=== PATIENT | female | born 1950 | race Caucasian/White ===

== ENCOUNTER 2017-01-21 09:46 | Inpatient (IN) ==
--- NOTE | 2017-01-21 10:06 | Emergency Department Note ---
Disposition Clinical Impression: Positive blood culture, Bacteremia Disposition: Admitted As Inpatient Condition: Fair Forms: ED Satisfaction Letter Time of Disposition: 11:23 General Adult HPI - General Chief complaint: ED Recheck/Abnormal Lab/Rx Stated complaint: Abnormal Labs/positive blood cultures Time Seen by Provider: 01/21/17 10:00 Source: patient Limitations: no limitations Nursing Notes Reviewed: Yes Vital Signs Reviewed: Yes - History of Present Illness HPI Narrative: Patient presents to the ED with a positive blood culture. Patient was seen 2 days ago for generalized malaise and fever. Sore throat. She had a blood culture drawn that came back positive for strep pneumo on the preliminary. She states she is not feeling much better. She is coughing but she cannot cough anything up. Sore throat and ear pain. Pain Scale: 4 - Related Data Home Medications Medication Instructions Recorded Confirmed Atorvastatin Calcium [Lipitor] 80 mg PO HS 01/21/17 01/21/17 Carvedilol 3.125 mg PO BID 01/21/17 01/21/17 Cholecalciferol (D-3) [Vitamin D] 1,000 unit PO DAILY 01/21/17 01/21/17 Gabapentin [Neurontin] 300 mg PO TID 01/21/17 01/21/17 Isosorbide MONOnitrate (24 HR) 30 mg PO DAILY 01/21/17 01/21/17 [Imdur] Levothyroxine [Synthroid] 88 mcg PO DAILY 01/21/17 01/21/17 Losartan [Cozaar] 25 mg PO DAILY 01/21/17 01/21/17 Ranitidine HCl [Acid Telecommunication Systems Designer] 150 mg PO BID 01/21/17 01/21/17 Sertraline [Zoloft] 100 mg PO BID 01/21/17 01/21/17 metFORMIN [Glucophage] 500 mg PO BIDWM 01/21/17 01/21/17 Allergies Allergy/AdvReac Type Severity Reaction Status Date / Time No Known Allergies Allergy Verified 01/21/17 09:48 All systems ED: reviewed and negative except as stated. Constitutional: Reports: fever, chills Cardiovascular: Denies: chest pain Respiratory: Reports: cough. Denies: dyspnea, wheezes, hemoptysis Gastrointestinal: Denies: abdominal pain Past Medical History - Past Medical History Attestation: Yes The following information was validated with the patient. Source: patient Medical history: Reports: arthritis, diabetes, hypertension Psychiatric history: Reports: no psych history - Social History Smoking Status: Current every day smoker Smokeless Tobacco Status: No Alcohol use: Reports: none Drug use: Reports: none Physical Exam Sitting on the side of the bed in no acute distress. Lungs clear. - General Limitations: no limitations General appearance: alert - Head Head exam: atraumatic, normocephalic - Eye Eye exam: Present: normal appearance - ENT ENT exam: other (Posterior pharynx erythema) - Chest Chest inspection: Present: normal inspection - Respiratory Respiratory exam: Present: normal lung sounds bilaterally. Absent: respiratory distress, wheezes - Cardiovascular Cardiovascular exam: Present: regular rate, normal rhythm, normal heart sounds - Abdominal Exam Abdominal exam: Present: soft, Non-Tender - Neurological Exam Neurological exam: Present: alert, oriented X3 - Psychiatric Psychiatric exam: Present: normal affect - Skin Skin exam: Present: warm, dry Course Course Narrative: Patient is in no distress. Vital signs stable. Well perform septic workup and admit. - Consultations Consultation #1: Dr Ramirez accepts Time: 11:23 Vital Signs Temperature 97.7 F 01/21/17 09:48 Pulse Rate 76 01/21/17 09:48 Respiratory Rate 20 01/21/17 09:48 Blood Pressure 126/69 01/21/17 09:48 O2 Sat by Pulse Oximetry 99 01/21/17 09:48 Temperature 97.7 F 01/21/17 09:48 Pulse Rate 77 01/21/17 11:13 Respiratory Rate 16 01/21/17 11:13 Blood Pressure 114/58 01/21/17 11:13 O2 Sat by Pulse Oximetry 98 01/21/17 11:13 Oxygen Delivery Oxygen Delivery Room Air Medical Decision Making - Lab Data Result diagrams: 01/21/17 10:39 01/21/17 10:39 Lab Results 01/21/17 01/21/17 01/21/17 Range/Units 10:39 10:39 10:39 WBC 17.1 H (4.3-11.1) K/mcL RBC 3.69 L (3.82-4.97) M/mcL Hgb 11.8 (11.5-15.4) g/dL Hct 35.3 (35.3-44.9) % MCV 95.7 (83.0-100.0) fL MCH 32.0 (28.0-33.3) pg MCHC 33.4 (31.6-35.5) g/dL RDW 12.6 (11.5-14.5) % Plt Count 110 L (140-400) K/mcL MPV 11.1 (9.4-12.4) fL Immature Gran % 0.9 (0-4) % Seg Neutrophils % 84.3 % Lymphocytes % 9.5 % Monocytes % 4.9 % Eosinophils % 0.2 % Basophils % 0.2 % Neutrophils # 14.4 H (1.6-8.9) K/mcL Lymphocytes # 1.6 (0.6-4.6) K/mcL Monocytes # 0.8 (0.0-1.3) K/mcL Eosinophils # 0.0 (0.0-0.6) K/mcL Basophils # 0.0 (0.0-0.2) K/mcL PT 12.3 H (9.4-12.1) Seconds INR 1.1 APTT 33.1 (26.0-36.0) Seconds Sodium 137 (136-145) mEq/L Potassium 3.3 L (3.5-4.5) mEq/L Chloride 100 (98-109) mEq/L Carbon Dioxide 27 (19-29) mEq/L BUN 28 H (7-20) mg/dL Creatinine 1.02 (0.57-1.11) mg/dL Est GFR ( Amer) > 60 (> 60) Est GFR (Non-Af Amer) 54 L (> 60) BUN/Creatinine Ratio 27 H (6-26) Glucose 100 H (70-99) mg/dL Calculated Osmolality 290 (280-300) Lactic Acid (0.5-2.2) mmol/L Calcium 9.9 (8.6-10.8) mg/dL Phosphorus 2.3 (2.3-4.7) mg/dL Magnesium 2.1 (1.6-2.6) mg/dL Total Bilirubin 1.2 (0.2-1.2) mg/dL Direct Bilirubin 0.6 H (0.0-0.5) mg/dL Indirect Bilirubin 0.6 (0.0-1.2) mg/dL AST 23 (5-34) Units/L ALT 23 (0-55) Units/L Alkaline Phosphatase 115 (38-126) Units/L Troponin I (0-0.03) ng/mL Serum Total Protein 7.6 (6.0-8.3) g/dL Albumin 3.6 (3.5-5.0) g/dL Globulin 4.0 H (2.4-3.5) g/dL Albumin/Globulin Ratio 0.9 L (1.1-2.2) 01/21/17 01/21/17 Range/Units 10:39 10:39 WBC (4.3-11.1) K/mcL RBC (3.82-4.97) M/mcL Hgb (11.5-15.4) g/dL Hct (35.3-44.9) % MCV (83.0-100.0) fL MCH (28.0-33.3) pg MCHC (31.6-35.5) g/dL RDW (11.5-14.5) % Plt Count (140-400) K/mcL MPV (9.4-12.4) fL Immature Gran % (0-4) % Seg Neutrophils % % Lymphocytes % % Monocytes % % Eosinophils % % Basophils % % Neutrophils # (1.6-8.9) K/mcL Lymphocytes # (0.6-4.6) K/mcL Monocytes # (0.0-1.3) K/mcL Eosinophils # (0.0-0.6) K/mcL Basophils # (0.0-0.2) K/mcL PT (9.4-12.1) Seconds INR APTT (26.0-36.0) Seconds Sodium (136-145) mEq/L Potassium (3.5-4.5) mEq/L Chloride (98-109) mEq/L Carbon Dioxide (19-29) mEq/L BUN (7-20) mg/dL Creatinine (0.57-1.11) mg/dL Est GFR ( Amer) (> 60) Est GFR (Non-Af Amer) (> 60) BUN/Creatinine Ratio (6-26) Glucose (70-99) mg/dL Calculated Osmolality (280-300) Lactic Acid 1.1 (0.5-2.2) mmol/L Calcium (8.6-10.8) mg/dL Phosphorus (2.3-4.7) mg/dL Magnesium (1.6-2.6) mg/dL Total Bilirubin (0.2-1.2) mg/dL Direct Bilirubin (0.0-0.5) mg/dL Indirect Bilirubin (0.0-1.2) mg/dL AST (5-34) Units/L ALT (0-55) Units/L Alkaline Phosphatase (38-126) Units/L Troponin I 0.01 (0-0.03) ng/mL Serum Total Protein (6.0-8.3) g/dL Albumin (3.5-5.0) g/dL Globulin (2.4-3.5) g/dL Albumin/Globulin Ratio (1.1-2.2) - EKG Data EKG #1 EKG attestation: Yes I reviewed and interpreted this EKG. EKG results narrative: EKG normal sinus at 71. Unchanged from 1024. EKG shows normal: sinus rhythm, axis, intervals, QRS complexes, ST-T waves Critical Care Time Critical Care Time: Yes Attestation: 30 minutes of critical care exclusive of separately billable procedures
[2017-01-21] MEDS ORDERED: Levofloxacin 750 MG/150 ML 750 MG/150 ML BAG IVPB ONE (10:14)
[2017-01-21] MEDS ORDERED: 0.9 % Sodium Chloride 1,000 ML IVC ONE (10:14)
[2017-01-21] MEDS ORDERED: Albuterol 2.5 MG/3 ML NEBULIZER IH ONE (10:17)
[2017-01-21 10:52] LABS: Basophils % 0.2 %; Eosinophils % 0.2 %; Hematocrit 35.3 % (35.3-44.9); Hemoglobin 11.8 g/dL (11.5-15.4); Immature Granulocytes % 0.9 % (0-4); Lymphocytes # 1.6 K/mcL (0.6-4.6); Lymphocytes % 9.5 %; Mean Corpuscular HGB Conc 33.4 g/dL (31.6-35.5); Mean Corpuscular Volume 95.7 fL (83.0-100.0); Mean Platelet Volume 11.1 fL (9.4-12.4); Monocytes # 0.8 K/mcL (0.0-1.3); Monocytes % 4.9 %; Neutrophils # 14.4 K/mcL (1.6-8.9); Platelet Count 110 K/mcL (140-400); Red Blood Count 3.69 M/mcL (3.82-4.97); Red Cell Distribution Width 12.6 % (11.5-14.5); Segmented Neutrophils % 84.3 %
[2017-01-21 10:57] LABS: INR 1.1; Prothrombin Time 12.3 Seconds (9.4-12.1)
[2017-01-21 10:59] LABS: Activated Partial Thrombo Time 33.1 Seconds (26.0-36.0)
[2017-01-21 11:10] LABS: Alanine Aminotransferase 23 Units/L (0-55); Albumin 3.6 g/dL (3.5-5.0); Albumin/Globulin Ratio 0.9 (1.1-2.2); Alkaline Phosphatase 115 Units/L (38-126); Aspartate Amino Transferase 23 Units/L (5-34); BUN/Creatinine Ratio 27 (6-26); Bilirubin,Direct 0.6 mg/dL (0.0-0.5); Bilirubin,Indirect 0.6 mg/dL (0.0-1.2); Bilirubin,Total 1.2 mg/dL (0.2-1.2); Blood Urea Nitrogen 28 mg/dL (7-20); Calcium 9.9 mg/dL (8.6-10.8); Carbon Dioxide 27 mEq/L (19-29); Chloride 100 mEq/L (98-109); Glucose 100 mg/dL (70-99); Magnesium 2.1 mg/dL (1.6-2.6); Osmolality,Calculated 290 (280-300); Phosphorous 2.3 mg/dL (2.3-4.7); Potassium 3.3 mEq/L (3.5-4.5); Sodium 137 mEq/L (136-145); Total Protein 7.6 g/dL (6.0-8.3); eGFR For African Americans > 60 (> 60); eGFR For Non-African Americans 54 (> 60)
[2017-01-21] MEDS ORDERED: Ondansetron 4 MG/2 ML VIAL IVP PRN (11:30)
[2017-01-21] MEDS ORDERED: Naloxone 0.4 MG/ML INJ IVP PRN (11:30)
[2017-01-21] MEDS ORDERED: *HR* Dextrose 50 % in Water (Syg) 50 ML SYRINGE IVP PRN (11:32)
[2017-01-21] MEDS ORDERED: D5% in Water 1,000 ML IVC PRN (11:32)
[2017-01-21] MEDS ORDERED: Dextrose Gel 15 GM PO PRN ×2 (11:32)
--- NOTE | 2017-01-21 11:45 | Event Note ---
Date of Encounter: 01/21/17 Time of Encounter: 11:41 The patient has been complaining of severe right ear pain and mentions that cannot hear very well without year. Right tympanic membrane shows a fluid level. Has been having severe pain with swallowing on the right side Treatment having nonquantifiable fevers at home and her white blood cell count is 17.1 1. Sepsis secondary to bacteremia with Streptococcus pneumoniae likely from possible right otitis media, consider possible retropharyngeal abscess or possible right mastoiditis Continue Rocephin, await final report of culture with sensitivity IV fluids, consider ENT consult depending on the report of the CT scan of the head and neck will be performed at the ER prior to the patient's admission. Dr. khan left already but Dr. Billingsley with order both tests 2. Leukocytosis likely secondary to sepsis 3. Diabetes, continue insulin sliding scale 4. Depression, continue Zoloft 5. Hypothyroidism, continue levothyroxine Omeprazole for GI prophylaxis and subcutaneous heparin for DVT prophylaxis. The patient will be admitted as inpatient, expected to stay more than 2 midnights. Full code. Time spent on this admission 40 minutes. H&P will be completed by ASHLEY Mo
--- NOTE | 2017-01-21 12:10 | Internal Med History&Physical ---
Date of Encounter: 01/21/17 Time of Encounter: 12:08 Assessment and Plan (1) Bacteremia Current visit: Yes Status: Acute 1 Patient has been experiencing subjective fever general malaise, cough congestion ear pain and throat pain. Blood culture positive for strep pneumonia. Blood culture obtained started on Rocephin- suspect possible right otitis media, possible retropharyngeal abcess or possible r mastoiditis will obtain CT of head neck to rule out 2 IVF (2) Diabetes mellitus Current visit: No Status: Chronic patient denies any diabetes however on metformin BID. We will obtain A1c Acucheck AC HS with SSI Qualifiers: Diabetes mellitus type: type 2 Diabetes mellitus complication status: with neurologic complications Diabetes mellitus complication detail: with unspecified neuropathy Diabetes mellitus intermediate insulin use: without terminal operator use Qualified Code(s): E11.40 - Type 2 diabetes mellitus with diabetic neuropathy, unspecified (3) HTN (hypertension) Current visit: No Status: Chronic 1 presently hypotensive dt infection- she has not taken medication for 2 days we will cont to hold and resume once back to baseline 2 IVF Qualifiers: Hypertension type: essential hypertension Qualified Code(s): I10 - Essential (primary) hypertension (4) Hypothyroid Current visit: No Status: Chronic continue synthroid Qualifiers: Hypothyroidism type: unspecified Qualified Code(s): E03.9 - Hypothyroidism , unspecified (5) DVT prophylaxis Current visit: Yes Status: Acute heparin subcutaneous T Internal Medicine - H&P: HPI Chief complaint: Cough, ear and throat pain Admitted From: Emergency Dept Plans for Post Hospital Care: Home History of present illness: Ms. Saleh is a 66 year old female past medical history of neuropathy and COPD hypothyroid . According to the patient she does not have any past heart history however she is on a beta leyda and statin as well as she denies diabetes but is on metformin. According to the patient for the past 3 days she has been experiencing nonproductive cough congestion subjective fevers and right ear pain which she has difficulty hearing as well as right throat pain and having difficulty swallowing. She was seen in the ER a few days ago and diagnosed with viral infection blood cultures were obtained they did come back positive with Streptococcus pneumoniae. Patient was notified today and presented to the ER with the above complaints. Lab work did reveal some leukocytosis blood cultures obtained and patient started on Rocephin and Levaquin. She has been admitted for further workup and evaluation. Presently patient does not appear to be respiratory distress. Lung sounds are clear she does have some tenderness behind her right ear as well as right tympanic membrane show some fluid level. We will obtain a CT of head and neck to rule out possible retropharyngeal abscess or possible r mastoiditis I reviewed this case with Dr Ramirez who agrees with plan. Past Med Surg Social Fam HX - Past Medical History Medical history: arthritis, diabetes, hypertension Psychiatric history: no psych history - Social History Smoking Status: Current every day smoker Smokeless Tobacco Status: No Alcohol use: none Drug use: none Internal Medicine - H&P: Meds Atorvastatin Calcium [Lipitor] 80 mg PO HS 01/21/17 [History] Carvedilol 3.125 mg PO BID 01/21/17 [History] Cholecalciferol (D-3) [Vitamin D] 1,000 unit PO DAILY 01/21/17 [History] Gabapentin [Neurontin] 300 mg PO TID 01/21/17 [History] Isosorbide MONOnitrate (24 HR) [Imdur] 30 mg PO DAILY 01/21/17 [History] Levothyroxine [Synthroid] 88 mcg PO DAILY 01/21/17 [History] Losartan [Cozaar] 25 mg PO DAILY 01/21/17 [History] Ranitidine HCl [Acid Management Trainee] 150 mg PO BID 01/21/17 [History] Sertraline [Zoloft] 100 mg PO BID 01/21/17 [History] metFORMIN [Glucophage] 500 mg PO BIDWM 01/21/17 [History] 3 Allergy/AdvReac Type Severity Reaction Status Date / Time No Known Allergies Allergy Verified 01/21/17 09:48 All Systems PM: A 10-system review of systems was performed and is negative for pertinent findings except as documented above in the HPI. - Constitutional Constitutional: fatigue, fever(s), no chills, no night sweats - EENT Eyes: no change in vision, no discharge, no pain, no photophobia Ears: decreased hearing, ear pain Nose, mouth and throat: sore throat, no dysphagia, no nasal discharge, no neck pain - Cardiovascular Cardiovascular ROS IM: no chest pain, no diaphoresis, no dyspnea, no lightheadedness, no palpitations, no syncope - Respiratory Respiratory: cough, chest congestion - Gastrointestinal Gastrointestinal: no abdominal pain, no diarrhea, no hematemesis, no hematochezia, no melena, no nausea, no vomiting - Genitourinary Genitourinary: no change in urinary stream, no dysuria, no flank pain, no hematuria - Musculoskeletal Musculoskeletal ROS IM: no numbness, no tingling - Integumentary Integumentary IM: no rash, no unusual bruising - Neurological Neurological ROS: no confusion, no convulsions, no focal weakness, no numbness, no tingling, no tremor(s) - Hematologic/Lymphatic Hematologic/Lymphatic: no easy bruising - Constitutional Vitals: Temp Pulse Resp BP Pulse Ox 97.7 F 77 16 114/58 98 01/21/17 09:48 01/21/17 11:13 01/21/17 11:13 01/21/17 11:13 01/21/17 11:13 General appearance: Present: A&O X 3, answers questions appropriately - Head Head exam: Present: atraumatic, normocephalic - Eye Eye exam: Present: PERRL, conjuntiva pink, sclera anicteric - ENT Additional comments: r tympanic-with fluid - Neck Neck exam general surgery: Present: supple, trachea midline. Absent: lymphadenopathy - Respiratory Respiratory exam: Present: CTAB. Absent: accessory muscle use, rales, rhonchi, wheezes - Cardiovascular Cardiovascular exam: Present: RRR, +S1, +S2. Absent: diastolic murmur, gallop, rubs, systolic murmur - GI/Abdominal GI/Abdominal exam: Present: normal bowel sounds, soft, no peritoneal signs. Absent: distended, tenderness - Extremities Exam Extremities exam: Present: warm, radial pulses palpable and symmetrical. Absent : calf tenderness, cyanotic, pedal edema - Neurological Exam Neurological exam: Present: CN II-XII intact, oriented X3, no focal deficits. Absent: pronater drift, facial droop, speech deficit - Skin Skin exam: Present: dry, intact Internal Med - H&P Results - Labs CBC & Chem 7: 01/21/17 10:39 01/21/17 10:39 Labs: Short CBC 01/21/17 Range/Units 10:39 WBC 17.1 H (4.3-11.1) K/mcL Hgb 11.8 (11.5-15.4) g/dL Hct 35.3 (35.3-44.9) % Plt Count 110 L (140-400) K/mcL Neutrophils # 14.4 H (1.6-8.9) K/mcL BMP 01/21/17 10:39 Sodium 137 Potassium 3.3 L Chloride 100 Carbon Dioxide 27 BUN 28 H Creatinine 1.02 Glucose 100 H Calcium 9.9 Cardiac Enzymes 01/21/17 Range/Units 10:39 Troponin I 0.01 (0-0.03) ng/mL Liver Function 01/21/17 Range/Units 10:39 Total Bilirubin 1.2 (0.2-1.2) mg/dL Direct Bilirubin 0.6 H (0.0-0.5) mg/dL AST 23 (5-34) Units/L ALT 23 (0-55) Units/L Alkaline Phosphatase 115 (38-126) Units/L Albumin 3.6 (3.5-5.0) g/dL - Impressions ITS Impressions Chest X-Ray 01/21/17 10:14 IMPRESSION: Normal. D/ / Carlos Antunez MD / Carlos Antunez MD Interpreting Provider: Carlos Antunez MD - Diagnostic Studies Other Images Additional comments: Chest X-Ray 01/21/17 10:14
[2017-01-21 12:56] LABS: Bilirubin,Urine Negative (Negative); Blood,Urine Negative (Negative); Clarity,Urine Cloudy (Clear); Color,Urine Dark Yellow (Yellow); Glucose,Urine (UA) Normal (Normal); Ketones,Urine Negative (Negative); Leukocyte Esterase,Urine Small (Negative); Nitrite,Urine Negative (Negative); PH,Urine 5.5 pH Units (5.0-8.0); Protein,Urine 30 mg/dL (Neg-Trace); Specific Gravity,Urine 1.025 (1.010-1.025); Urobilinogen,Urine Normal (Normal)
[2017-01-21 12:59] LABS: Squamous Epithelial Cell,Urine Many per lpf (None-Few); WBC,Urine 15-30 per hpf (0-3)
[2017-01-21 13:17] LABS: Granular Casts,Urine Few per lpf (None Seen); Hyaline Casts,Urine Few per lpf (None-Few); Mucus,Urine Few (Few)
[2017-01-21 13:19] LABS: Renal Epithelial Cells,Urine Few per hpf (None-Few); Transitional Epi Cells,Urine Few per hpf (None-Few)
[2017-01-21 13:20] LABS: Bacteria,Urine Moderate per hpf (None-Few); RBC,Urine 0-3 per hpf (0-3)
[2017-01-21] MEDS: 0.9 % Sodium Chloride 1,000 ML IVC SCH ×2 (15:11→17:06)
[2017-01-21] MEDS: Nicotine 14 MG PATCH.TD24 TD SCH (15:34)
[2017-01-21] MEDS: Gabapentin 300 MG CAPSULE PO SCH ×2 (15:34→22:02)
[2017-01-21] MEDS: Insulin LISPRO 300 UNITS/3 ML VIAL SQ SCH ×2 (15:49→22:04)
[2017-01-21] MEDS: *HR* Heparin 5,000 UNIT/ML VIAL SQ SCH (17:05)
[2017-01-21] MEDS: Acetaminophen 325 MG TABLET PO PRN (22:01)
[2017-01-22 04:20] LABS: BUN/Creatinine Ratio 27 (6-26); Blood Urea Nitrogen 23 mg/dL (7-20); Carbon Dioxide 25 mEq/L (19-29); Chloride 108 mEq/L (98-109); Potassium 3.5 mEq/L (3.5-4.5); Sodium 139 mEq/L (136-145); eGFR For African Americans > 60 (> 60)
[2017-01-22 04:21] LABS: Calcium 8.7 mg/dL (8.6-10.8); Glucose 91 mg/dL (70-99); Osmolality,Calculated 291 (280-300); eGFR For Non-African Americans > 60 (> 60)
[2017-01-22 04:23] LABS: Hemoglobin A1C 4.7 %
[2017-01-22] MEDS ORDERED: *HR* OxyCODONE Immed Rel 5 MG TABLET PO ONE (05:07)
[2017-01-22 05:08] LABS: Basophils % 0.2 %; Hemoglobin 9.2 g/dL (11.5-15.4); Immature Granulocytes % 0.7 % (0-4); Mean Corpuscular Volume 96.1 fL (83.0-100.0); Monocytes % 5.1 %
[2017-01-22 05:09] LABS: Eosinophils # 0.1 K/mcL (0.0-0.6); Eosinophils % 1.5 %; Hematocrit 27.4 % (35.3-44.9); Lymphocytes # 1.7 K/mcL (0.6-4.6); Lymphocytes % 21.4 %; Mean Corpuscular HGB Conc 33.6 g/dL (31.6-35.5); Mean Corpuscular Hemoglobin 32.3 pg (28.0-33.3); Mean Platelet Volume 11.8 fL (9.4-12.4); Monocytes # 0.4 K/mcL (0.0-1.3); Neutrophils # 5.7 K/mcL (1.6-8.9); Red Blood Count 2.85 M/mcL (3.82-4.97); Red Cell Distribution Width 12.7 % (11.5-14.5); Segmented Neutrophils % 71.1 %
[2017-01-22] MEDS: *HR* Heparin 5,000 UNIT/ML VIAL SQ SCH ×2 (05:14→17:49)
[2017-01-22 06:08] LABS: Platelet Count 86 K/mcL (140-400)
[2017-01-22] MEDS: Isosorbide MONOnitrate (24 HR) 30 MG TAB.ER.24H PO SCH (09:17)
[2017-01-22] MEDS: Pantoprazole 40 MG VIAL IVP SCH (09:17)
[2017-01-22] MEDS: Nicotine 14 MG PATCH.TD24 TD SCH (09:17)
[2017-01-22] MEDS: Gabapentin 300 MG CAPSULE PO SCH ×3 (09:17→21:40)
[2017-01-22] MEDS: Insulin LISPRO 300 UNITS/3 ML VIAL SQ SCH ×4 (09:17→21:41)
--- NOTE | 2017-01-22 09:48 | Internal Med Progress Note ---
<Juan C Morales Quynh - Last Filed: 01/22/17 14:03> Date of Encounter: 01/22/17 Time of Encounter: 09:46 - Assessment and plan (1) Bacteremia due to Streptococcus pneumoniae Current Visit: Yes Status: Acute Assessment and plan: Blood culture from 01/19/17 - Strep pneumo - sensitive to ceftriaxone Likely secondary to right otitis media - ear pain and sore throat are both improving CT shows no soft tissue mass, no retropharyngeal abscess, and no mastroiditis CXR showed no acute abnormality or consolidation Plan: Increase Rocephin to 2 gram - AOM vs sinusitis vs pharyngeal source Repeat Blood cultures (2) Leukocytosis Current Visit: Yes Status: Acute Assessment and plan: WBC 17.1 on admission - now 8.0 Continue antibiotics Qualifiers: Leukocytosis type: unspecified Qualified Code(s): D72.829 - Elevated white blood cell count, unspecified (3) Diabetes mellitus Current Visit: No Status: Chronic Assessment and plan: Continue SSI Qualifiers: Diabetes mellitus type: type 2 Diabetes mellitus complication status: with neurologic complications Diabetes mellitus complication detail: with unspecified neuropathy Diabetes mellitus parts counterman insulin use: without parts counterman use Qualified Code(s): E11.40 - Type 2 diabetes mellitus with diabetic neuropathy, unspecified (4) HTN (hypertension) Current Visit: No Status: Chronic Assessment and plan: Normotensive now - continue home meds Qualifiers: Hypertension type: essential hypertension Qualified Code(s): I10 - Essential (primary) hypertension - Subjective Interval history: Pt doing well, resting in bed. Reports some back pain, mild dyspnea, and dry cough. The dyspnea and cough are no different or worse than usual. Her sore throat and her ear pain are improving, no dysphagia. Denies fevers, chills, chest pain, N/V/D/C, dysuria, or leg pain/edema. - Constitutional Vitals: Temp Pulse Resp BP Pulse Ox 98.8 F 68 18 113/57 94 01/22/17 08:17 01/22/17 08:17 01/22/17 08:17 01/22/17 08:17 01/22/17 08:17 General appearance: Present: A&O X 3, answers questions appropriately - Head Head exam: Present: atraumatic, normocephalic - Eye Eye exam: Present: conjuntiva pink, sclera anicteric - ENT ENT exam: Present: mucous membranes moist - Neck Neck exam general surgery: Present: supple, trachea midline. Absent: lymphadenopathy - Respiratory Respiratory exam: Present: wheezes (cleared after coughing). Absent: accessory muscle use, rales, rhonchi - Cardiovascular Cardiovascular exam: Present: RRR, +S1, +S2. Absent: diastolic murmur, systolic murmur - GI/Abdominal GI/Abdominal exam: Present: normal bowel sounds, soft, no peritoneal signs. Absent: distended, tenderness - Extremities Exam Extremities exam: Present: warm, radial pulses palpable and symmetrical. Absent : calf tenderness, cyanotic, pedal edema - Neurological Exam Neurological exam: Present: CN II-XII intact, oriented X3, no focal deficits. Absent: facial droop, speech deficit - Skin Skin exam: Present: dry, intact Internal Medicine: Result - Labs CBC & Chem 7: 01/22/17 03:47 01/22/17 03:47 Labs: Short CBC 01/22/17 Range/Units 03:47 WBC 8.0 D (4.3-11.1) K/mcL Hgb 9.2 L D (11.5-15.4) g/dL Hct 27.4 L (35.3-44.9) % Plt Count 86 L (140-400) K/mcL Neutrophils # 5.7 (1.6-8.9) K/mcL BMP 01/22/17 03:47 Sodium 139 Potassium 3.5 Chloride 108 Carbon Dioxide 25 BUN 23 H Creatinine 0.86 Glucose 91 Calcium 8.7 Urine 01/21/17 Range/Units 12:45 Urine Color Dark Yellow (Yellow) Urine Clarity Cloudy A (Clear) Urine pH 5.5 (5.0-8.0) pH Units Ur Specific [place] 1.025 (1.010-1.025) Urine Protein 30 H (Neg-Trace) mg/dL Urine Glucose (UA) Normal (Normal) mg/dL - ABG Interpretation ABG results: PT/INR, D-dimer PT 12.3 Seconds (9.4-12.1) H 01/21/17 10:39 Consult Discharge Plan - Plan Referrals: Benson Herrera DO [Primary Care Provider] - <Elan Hodge - Last Filed: 01/22/17 17:40> Date of Encounter: 01/22/17 - Constitutional Vitals: Temp Pulse Resp BP Pulse Ox 99.3 F 84 18 125/63 97 01/22/17 15:52 01/22/17 15:52 01/22/17 15:52 01/22/17 15:52 01/22/17 15:52 Internal Medicine: Result - Labs CBC & Chem 7: 01/22/17 03:47 01/22/17 03:47 Labs: Short CBC 01/22/17 Range/Units 03:47 WBC 8.0 D (4.3-11.1) K/mcL Hgb 9.2 L D (11.5-15.4) g/dL Hct 27.4 L (35.3-44.9) % Plt Count 86 L (140-400) K/mcL Neutrophils # 5.7 (1.6-8.9) K/mcL BMP 01/22/17 03:47 Sodium 139 Potassium 3.5 Chloride 108 Carbon Dioxide 25 BUN 23 H Creatinine 0.86 Glucose 91 Calcium 8.7 - ABG Interpretation ABG results: PT/INR, D-dimer PT 12.3 Seconds (9.4-12.1) H 01/21/17 10:39 - Attending Attestation I examined this patient and my medical decision-making was reviewed with the Resident Physician. I agree with the documented findings, disposition and treatment plan as described except to the extent set forth below. Explained at length to patient and family members regarding the diagnosis/ prognosis and treatment plan. They all verbalized understanding.
[2017-01-22] MEDS ORDERED: 0.9 % Sodium Chloride 250 ML ONE (13:24)
[2017-01-22] MEDS: cefTRIAXone 2,000 MG in Water for inj. (sterile) 10 ML IVP SCH (13:26)
[2017-01-22] MEDS: Acetaminophen 325 MG TABLET PO PRN ×2 (14:10→21:40)
--- NOTE | 2017-01-22 18:17 | Electrocardiograph Report ---
[facility] Test Date: 2017-01-21 Pat Name: Arcelia Saleh Department: 103 Room: 2NE27 Gender: F Qualitative Field Coordinator: : 1950 Requested By: Mamie See Order Number: [id number] Reading MD: Marcos Cardona DO Measurements Intervals [place] Rate: 71 P: -7 VT: 151 QRS: 56 QRSD: 93 T: 50 QT: 404 QTc: 426 Interpretive Statements SINUS RHYTHM Electronically Signed On 01-22-2017 18:15:35 EDT by Marcos Cardona DO
[2017-01-22] MEDS ORDERED: *HR* LORazepam 0.5 MG TABLET PO ONE (20:08)
[2017-01-22] MEDS ORDERED: Ipratropium/Albuterol Neb 3 ML IH PRN (21:55)
[2017-01-23] MEDS: Ipratropium/Albuterol Neb 3 ML IH SCH ×7 (00:07→23:20)
[2017-01-23] MEDS: *HR* Heparin 5,000 UNIT/ML VIAL SQ SCH ×2 (06:14→16:38)
[2017-01-23 07:46] LABS: BUN/Creatinine Ratio 20 (6-26); Blood Urea Nitrogen 15 mg/dL (7-20); Calcium 8.7 mg/dL (8.6-10.8); Carbon Dioxide 26 mEq/L (19-29); Chloride 105 mEq/L (98-109); Glucose 127 mg/dL (70-99); Osmolality,Calculated 284 (280-300); Potassium 3.8 mEq/L (3.5-4.5); Sodium 136 mEq/L (136-145); eGFR For African Americans > 60 (> 60); eGFR For Non-African Americans > 60 (> 60)
[2017-01-23 07:48] LABS: Hematocrit 25.6 % (35.3-44.9); Hemoglobin 8.8 g/dL (11.5-15.4); Immature Platelets 8.8 % (1.1-6.1); Mean Corpuscular HGB Conc 34.4 g/dL (31.6-35.5); Mean Corpuscular Hemoglobin 32.8 pg (28.0-33.3); Mean Corpuscular Volume 95.5 fL (83.0-100.0); Red Blood Count 2.68 M/mcL (3.82-4.97); Red Cell Distribution Width 12.4 % (11.5-14.5)
[2017-01-23] MEDS: Pantoprazole 40 MG VIAL IVP SCH (09:19)
[2017-01-23] MEDS: Gabapentin 300 MG CAPSULE PO SCH ×3 (09:19→21:08)
[2017-01-23] MEDS: Nicotine 14 MG PATCH.TD24 TD SCH (09:20)
[2017-01-23] MEDS: Insulin LISPRO 300 UNITS/3 ML VIAL SQ SCH ×4 (09:20→21:10)
[2017-01-23] MEDS: Isosorbide MONOnitrate (24 HR) 30 MG TAB.ER.24H PO SCH (09:20)
[2017-01-23] MEDS: cefTRIAXone 2,000 MG in Water for inj. (sterile) 10 ML IVP SCH (12:25)
--- NOTE | 2017-01-23 18:03 | Internal Med Progress Note ---
Date of Encounter: 01/23/17 Time of Encounter: 18:02 - Assessment and plan (1) Bacteremia due to Streptococcus pneumoniae Current Visit: Yes Status: Acute Assessment and plan: Blood culture from 01/19/17 - Strep pneumo - sensitive to ceftriaxone Likely secondary to right otitis media - ear pain and sore throat are both improving CT shows no soft tissue mass, no retropharyngeal abscess, and no mastroiditis CXR showed no acute abnormality or consolidation Plan: Increase Rocephin to 2 gram - AOM vs sinusitis vs pharyngeal source Repeat Blood cultures 01/23/2017. Streptococcus pneumoniae bacteremia. Day 3 of antibiotics. Presently on ceftriaxone 2 g every 24 hours. Source unclear. Repeat blood culture from this hospital is negative so far. (2) Leukocytosis Current Visit: Yes Status: Acute Assessment and plan: WBC 17.1 on admission - now 8.0 Continue antibiotics 01/23/2017. Leukocytosis resolved. Qualifiers: Leukocytosis type: unspecified Qualified Code(s): D72.829 - Elevated white blood cell count, unspecified (3) Diabetes mellitus Current Visit: No Status: Chronic Assessment and plan: Continue SSI Qualifiers: Diabetes mellitus type: type 2 Diabetes mellitus complication status: with neurologic complications Diabetes mellitus complication detail: with unspecified neuropathy Diabetes mellitus manager intermediate insulin use: without manager intermediate use Qualified Code(s): E11.40 - Type 2 diabetes mellitus with diabetic neuropathy, unspecified (4) HTN (hypertension) Current Visit: No Status: Chronic Assessment and plan: Normotensive now - continue home meds Qualifiers: Hypertension type: essential hypertension Qualified Code(s): I10 - Essential (primary) hypertension (5) DVT prophylaxis Current Visit: Yes Status: Acute Assessment and plan: Heparin Medical decision-making: this patient has moderate to severe risk of worsening in spite of being on appropriate medication due to the underlying condition. - Subjective Interval history: Patient seen and examined. Chart reviewed. Next and patient is comfortably lying in bed. Patient does not complain of chest pain, shortness of breath, nausea, vomiting, abdominal pain, neck stiffness, neck pain, dizziness, or diarrhea. - Constitutional Vitals: Temp Pulse Resp BP Pulse Ox 98.6 F 87 17 131/60 95 01/23/17 16:10 01/23/17 16:10 01/23/17 16:10 01/23/17 16:10 01/23/17 16:10 General appearance: Present: A&O X 3, answers questions appropriately - Head Head exam: Present: atraumatic, normocephalic - Eye Eye exam: Present: PERRL, conjuntiva pink, sclera anicteric Pupils: Present: PERRL - Neck Neck exam general surgery: Present: supple, trachea midline. Absent: lymphadenopathy - Respiratory Respiratory exam: Present: CTAB. Absent: accessory muscle use, rales, rhonchi, wheezes - Cardiovascular Cardiovascular exam: Present: RRR, +S1, +S2. Absent: diastolic murmur, gallop, rubs, systolic murmur - GI/Abdominal GI/Abdominal exam: Present: normal bowel sounds, soft, no peritoneal signs. Absent: distended, tenderness - Extremities Exam Extremities exam: Present: warm, radial pulses palpable and symmetrical. Absent : calf tenderness, cyanotic, pedal edema - Neurological Exam Neurological exam: Present: CN II-XII intact, oriented X3, no focal deficits. Absent: pronater drift, facial droop, speech deficit - Skin Skin exam: Present: dry, intact Internal Medicine: Result - Labs CBC & Chem 7: 01/23/17 07:07 01/23/17 07:07 Labs: Short CBC 01/23/17 Range/Units 07:07 WBC 8.2 (4.3-11.1) K/mcL Hgb 8.8 L (11.5-15.4) g/dL Hct 25.6 L (35.3-44.9) % Plt Count 94 L (140-400) K/mcL BMP 01/23/17 07:07 Sodium 136 Potassium 3.8 Chloride 105 Carbon Dioxide 26 BUN 15 Creatinine 0.74 Glucose 127 H Calcium 8.7 - ABG Interpretation ABG results: PT/INR, D-dimer PT 12.3 Seconds (9.4-12.1) H 01/21/17 10:39 Consult Discharge Plan - Plan Referrals: Benson Herrera DO [Primary Care Provider] -
[2017-01-23] MEDS: *HR* LORazepam 0.5 MG TABLET PO PRN (21:08)
[2017-01-24] MEDS: Ipratropium/Albuterol Neb 3 ML IH SCH ×6 (03:06→23:40)
[2017-01-24 03:19] LABS: Alanine Aminotransferase 22 Units/L (0-55); Albumin/Globulin Ratio 0.7 (1.1-2.2); Alkaline Phosphatase 108 Units/L (38-126); Aspartate Amino Transferase 25 Units/L (5-34); BUN/Creatinine Ratio 16 (6-26); Bilirubin,Total 0.5 mg/dL (0.2-1.2); Blood Urea Nitrogen 12 mg/dL (7-20); Calcium 9.2 mg/dL (8.6-10.8); Carbon Dioxide 28 mEq/L (19-29); Chloride 106 mEq/L (98-109); Globulin 3.5 g/dL (2.4-3.5); Glucose 108 mg/dL (70-99); Osmolality,Calculated 290 (280-300); Potassium 3.6 mEq/L (3.5-4.5); Sodium 140 mEq/L (136-145); eGFR For African Americans > 60 (> 60); eGFR For Non-African Americans > 60 (> 60)
[2017-01-24 03:20] LABS: Albumin 2.5 g/dL (3.5-5.0)
[2017-01-24 03:25] LABS: Basophils % 0.4 %; Eosinophils # 0.1 K/mcL (0.0-0.6); Eosinophils % 1.5 %; Hematocrit 27.2 % (35.3-44.9); Hemoglobin 9.3 g/dL (11.5-15.4); Immature Granulocytes % 1.2 % (0-4); Lymphocytes # 1.3 K/mcL (0.6-4.6); Lymphocytes % 18.1 %; Mean Corpuscular HGB Conc 34.2 g/dL (31.6-35.5); Mean Corpuscular Hemoglobin 32.5 pg (28.0-33.3); Mean Corpuscular Volume 95.1 fL (83.0-100.0); Mean Platelet Volume 11.7 fL (9.4-12.4); Monocytes # 0.6 K/mcL (0.0-1.3); Monocytes % 7.7 %; Neutrophils # 5.2 K/mcL (1.6-8.9); Platelet Count 109 K/mcL (140-400); Red Blood Count 2.86 M/mcL (3.82-4.97); Red Cell Distribution Width 12.3 % (11.5-14.5); Segmented Neutrophils % 71.1 %
[2017-01-24] MEDS: *HR* Heparin 5,000 UNIT/ML VIAL SQ SCH ×2 (06:17→17:48)
[2017-01-24] MEDS: Isosorbide MONOnitrate (24 HR) 30 MG TAB.ER.24H PO SCH (08:36)
[2017-01-24] MEDS: Gabapentin 300 MG CAPSULE PO SCH ×3 (08:36→22:00)
[2017-01-24] MEDS: Insulin LISPRO 300 UNITS/3 ML VIAL SQ SCH ×4 (08:37→22:00)
[2017-01-24] MEDS: Nicotine 14 MG PATCH.TD24 TD SCH (08:37)
[2017-01-24] MEDS: Pantoprazole 40 MG VIAL IVP SCH (08:45)
[2017-01-24] MEDS: cefTRIAXone 2,000 MG in Water for inj. (sterile) 10 ML IVP SCH (11:51)
--- NOTE | 2017-01-24 17:38 | Internal Med Progress Note ---
Date of Encounter: 01/24/17 Time of Encounter: 17:36 - Assessment and plan (1) Bacteremia due to Streptococcus pneumoniae Current Visit: Yes Status: Acute Assessment and plan: Blood culture from 01/19/17 - Strep pneumo - sensitive to ceftriaxone Likely secondary to right otitis media - ear pain and sore throat are both improving CT shows no soft tissue mass, no retropharyngeal abscess, and no mastroiditis CXR showed no acute abnormality or consolidation Plan: Increase Rocephin to 2 gram - AOM vs sinusitis vs pharyngeal source Repeat Blood cultures 01/23/2017. Streptococcus pneumoniae bacteremia. Day 3 of antibiotics. Presently on ceftriaxone 2 g every 24 hours. Source unclear. Repeat blood culture from this hospital is negative so far. 01/24/2017 Streptococcus pneumoniae bacteremia. Day 4 antibiotics Ceftriaxone 2 g every 24 hours Source unclear Repeat blood cultures negative so far more than 48 hours. Patient denies ear pain, nasal discharge, cough, shortness of breath, mucopurulent expectorations. Possible infectious disease review tomorrow. (2) Leukocytosis Current Visit: Yes Status: Acute Assessment and plan: WBC 17.1 on admission - now 8.0 Continue antibiotics 01/23/2017. Leukocytosis resolved. Qualifiers: Leukocytosis type: unspecified Qualified Code(s): D72.829 - Elevated white blood cell count, unspecified (3) Diabetes mellitus Current Visit: No Status: Chronic Assessment and plan: Continue SSI Qualifiers: Diabetes mellitus type: type 2 Diabetes mellitus complication status: with neurologic complications Diabetes mellitus complication detail: with unspecified neuropathy Diabetes mellitus long term care social worker insulin use: without penitentiary use Qualified Code(s): E11.40 - Type 2 diabetes mellitus with diabetic neuropathy, unspecified (4) HTN (hypertension) Current Visit: No Status: Chronic Assessment and plan: Normotensive now - continue home meds Qualifiers: Hypertension type: essential hypertension Qualified Code(s): I10 - Essential (primary) hypertension (5) DVT prophylaxis Current Visit: Yes Status: Acute Assessment and plan: Heparin Medical decision-making: this patient has moderate to severe risk of worsening in spite of being on appropriate medication due to the underlying condition. - Subjective Interval history: Patient seen and examined. Chart reviewed. Next and patient is comfortably lying in bed. Patient does not complain of chest pain, shortness of breath, nausea, vomiting, abdominal pain, neck stiffness, neck pain, dizziness, or diarrhea. 01/24/2017 Patient seen and examined. Chart review. Patient is comfortably lying in the bed. patient does not have any complaints. Patient denies shortness of breath, chest pain, nausea, vomiting, abdominal pain and diarrhea - Constitutional Vitals: Temp Pulse Resp BP Pulse Ox 98.4 F 85 16 136/66 95 01/23/17 20:13 01/24/17 15:00 01/24/17 15:00 01/24/17 15:00 01/24/17 15:00 General appearance: Present: A&O X 3, answers questions appropriately - Head Head exam: Present: atraumatic, normocephalic - Eye Eye exam: Present: PERRL, conjuntiva pink, sclera anicteric Pupils: Present: PERRL - Neck Neck exam general surgery: Present: supple, trachea midline. Absent: lymphadenopathy - Respiratory Respiratory exam: Present: CTAB. Absent: accessory muscle use, rales, rhonchi, wheezes - Cardiovascular Cardiovascular exam: Present: RRR, +S1, +S2. Absent: diastolic murmur, gallop, rubs, systolic murmur - GI/Abdominal GI/Abdominal exam: Present: normal bowel sounds, soft, no peritoneal signs. Absent: distended, tenderness - Extremities Exam Extremities exam: Present: warm, radial pulses palpable and symmetrical. Absent : calf tenderness, cyanotic, pedal edema - Neurological Exam Neurological exam: Present: CN II-XII intact, oriented X3, no focal deficits. Absent: pronater drift, facial droop, speech deficit - Skin Skin exam: Present: dry, intact Internal Medicine: Result - Labs CBC & Chem 7: 01/24/17 02:45 01/24/17 02:45 Labs: Short CBC 01/24/17 Range/Units 02:45 WBC 7.4 (4.3-11.1) K/mcL Hgb 9.3 L (11.5-15.4) g/dL Hct 27.2 L (35.3-44.9) % Plt Count 109 L (140-400) K/mcL Neutrophils # 5.2 (1.6-8.9) K/mcL BMP 01/24/17 02:45 Sodium 140 Potassium 3.6 Chloride 106 Carbon Dioxide 28 BUN 12 Creatinine 0.73 Glucose 108 H Calcium 9.2 Liver Function 01/24/17 Range/Units 02:45 Total Bilirubin 0.5 (0.2-1.2) mg/dL AST 25 (5-34) Units/L ALT 22 (0-55) Units/L Alkaline Phosphatase 108 (38-126) Units/L Albumin 2.5 L D (3.5-5.0) g/dL - ABG Interpretation ABG results: PT/INR, D-dimer PT 12.3 Seconds (9.4-12.1) H 01/21/17 10:39 Consult Discharge Plan - Plan Referrals: Benson Herrera DO [Primary Care Provider] -
[2017-01-24] MEDS: *HR* LORazepam 0.5 MG TABLET PO PRN (21:59)
[2017-01-25] MEDS: Ipratropium/Albuterol Neb 3 ML IH SCH ×3 (03:21→11:34)
[2017-01-25 04:16] LABS: Hematocrit 26.8 % (35.3-44.9); Mean Corpuscular HGB Conc 33.6 g/dL (31.6-35.5); Mean Corpuscular Volume 95.4 fL (83.0-100.0); Mean Platelet Volume 11.1 fL (9.4-12.4); Platelet Count 128 K/mcL (140-400); Red Blood Count 2.81 M/mcL (3.82-4.97); Red Cell Distribution Width 12.4 % (11.5-14.5)
[2017-01-25 04:17] LABS: Basophils % 0.6 %; Eosinophils # 0.3 K/mcL (0.0-0.6); Eosinophils % 3.4 %; Hematocrit 26.8 % (35.3-44.9); Hemoglobin 8.9 g/dL (11.5-15.4); Immature Granulocytes % 2.2 % (0-4); Lymphocytes # 1.6 K/mcL (0.6-4.6); Lymphocytes % 22.2 %; Mean Corpuscular HGB Conc 33.2 g/dL (31.6-35.5); Mean Corpuscular Hemoglobin 31.7 pg (28.0-33.3); Mean Corpuscular Volume 95.4 fL (83.0-100.0); Mean Platelet Volume 11.4 fL (9.4-12.4); Monocytes # 0.5 K/mcL (0.0-1.3); Monocytes % 7.2 %; Neutrophils # 4.7 K/mcL (1.6-8.9); Platelet Count 129 K/mcL (140-400); Red Blood Count 2.81 M/mcL (3.82-4.97); Red Cell Distribution Width 12.4 % (11.5-14.5); Segmented Neutrophils % 64.4 %
[2017-01-25 04:34] LABS: BUN/Creatinine Ratio 23 (6-26); Blood Urea Nitrogen 17 mg/dL (7-20); Calcium 9.1 mg/dL (8.6-10.8); Carbon Dioxide 26 mEq/L (19-29); Chloride 107 mEq/L (98-109); Glucose 97 mg/dL (70-99); Osmolality,Calculated 293 (280-300); Potassium 3.8 mEq/L (3.5-4.5); Sodium 141 mEq/L (136-145); eGFR For African Americans > 60 (> 60); eGFR For Non-African Americans > 60 (> 60)
[2017-01-25 04:36] LABS: Alanine Aminotransferase 32 Units/L (0-55); Albumin 2.4 g/dL (3.5-5.0); Albumin/Globulin Ratio 0.7 (1.1-2.2); Alkaline Phosphatase 100 Units/L (38-126); Aspartate Amino Transferase 35 Units/L (5-34); BUN/Creatinine Ratio 22 (6-26); Bilirubin,Total 0.4 mg/dL (0.2-1.2); Blood Urea Nitrogen 16 mg/dL (7-20); Carbon Dioxide 26 mEq/L (19-29); Chloride 107 mEq/L (98-109); Globulin 3.3 g/dL (2.4-3.5); Glucose 98 mg/dL (70-99); Osmolality,Calculated 293 (280-300); Potassium 3.8 mEq/L (3.5-4.5); Sodium 141 mEq/L (136-145); Total Protein 5.7 g/dL (6.0-8.3); eGFR For African Americans > 60 (> 60); eGFR For Non-African Americans > 60 (> 60)
[2017-01-25] MEDS: *HR* Heparin 5,000 UNIT/ML VIAL SQ SCH (05:39)
[2017-01-25] MEDS: Insulin LISPRO 300 UNITS/3 ML VIAL SQ SCH ×2 (07:47→11:28)
[2017-01-25] MEDS: Gabapentin 300 MG CAPSULE PO SCH (08:15)
[2017-01-25] MEDS: Nicotine 14 MG PATCH.TD24 TD SCH (08:16)
[2017-01-25] MEDS: Pantoprazole 40 MG VIAL IVP SCH (08:17)
[2017-01-25] MEDS: Isosorbide MONOnitrate (24 HR) 30 MG TAB.ER.24H PO SCH (08:17)
[2017-01-25] MEDS: cefTRIAXone 2,000 MG in Water for inj. (sterile) 10 ML IVP SCH (11:22)
[2017-01-25 11:24] VITALS: BP 110/65
--- NOTE | 2017-01-25 11:34 | Discharge Summary ---
<Juan C Morales - Last Filed: 01/25/17 12:00> Date of Encounter: 01/25/17 Time of Encounter: 11:17 - Discharge Diagnosis (1) Bacteremia due to Streptococcus pneumoniae Priority: Primary Status: Acute (2) Leukocytosis Priority: Secondary Status: Acute Qualifiers: Leukocytosis type: unspecified Qualified Code(s): D72.829 - Elevated white blood cell count, unspecified (3) Diabetes mellitus Priority: Secondary Status: Chronic Qualifiers: Diabetes mellitus type: type 2 Diabetes mellitus complication status: with neurologic complications Diabetes mellitus complication detail: with unspecified neuropathy Diabetes mellitus exterminator helper insulin use: without exterminator helper use Qualified Code(s): E11.40 - Type 2 diabetes mellitus with diabetic neuropathy, unspecified (4) HTN (hypertension) Priority: Secondary Status: Chronic Qualifiers: Hypertension type: essential hypertension Qualified Code(s): I10 - Essential (primary) hypertension - Discharge Medications Prescriptions: Amoxicillin 1,000 mg PO Q8H #60 tablet Home Medications: Atorvastatin Calcium [Lipitor] 80 mg PO HS 01/21/17 [History] Carvedilol 3.125 mg PO BID 01/21/17 [History] Cholecalciferol (D-3) [Vitamin D] 1,000 unit PO DAILY 01/21/17 [History] Gabapentin [Neurontin] 300 mg PO TID 01/21/17 [History] Isosorbide MONOnitrate (24 HR) [Imdur] 30 mg PO DAILY 01/21/17 [History] Levothyroxine [Synthroid] 88 mcg PO DAILY 01/21/17 [History] Losartan [Cozaar] 25 mg PO DAILY 01/21/17 [History] Ranitidine HCl [Acid Imcu Specialist] 150 mg PO BID 01/21/17 [History] Sertraline [Zoloft] 100 mg PO BID 01/21/17 [History] metFORMIN [Glucophage] 500 mg PO BIDWM 01/21/17 [History] Amoxicillin 1,000 mg PO Q8H #60 tablet 01/25/17 [Rx] Allergies/Adverse Reactions: 3 Allergy/AdvReac Type Severity Reaction Status Date / Time No Known Allergies Allergy Verified 01/21/17 09:48 Date of admission: 01/21/17 12:07 Primary care physician: Benson Herrera Consults: 10/30/17 10:05 Consult to Infectious Diseases [CONS] Routine Consulting Provider: Infectious Disease [place] Reason for Consult: antibiotic choice Time Notified: 10:05 Call Completed: Yes Discharging clinician: Juan C Morales Anticipated date of discharge: 01/25/17 - Patient Status Disposition: Home, Self-Care Condition: Fair Functional capacity at discharge: independent ambulation Overall status at discharge: patient is back to baseline - Discharge Instructions Follow Up With: Benson Herrera DO [Primary Care Provider] - Additional Instructions: Take your medications as prescribed Follow-up with your PCP in 1 week Return to the hospital if your symptoms return or worsen - Diet and Activity Activity: increase activity as tolerated Diet: advance to your usual diet Interval History: Pt doing well with no complaints. She was up walking around in the room today. She states she is back to her normal self and her son agrees. She denies sore throat, dyspnea, cough, chest pain, abdominal pain, N/V/D/C, dysuria, or leg pain/edema. Hospital course: Ms. Saleh is a 66 year old female with PMH DM, HTN, COPD, and arthritis returns to the hospital after a positive blood culture result for Strep pneumoniae. She presented to the ED on 01/19/17 with malaise, weakness, non- productive cough, subjective fevers, right earache, and sore throat. Throat culture and urine culture showed no growth. CXR was clear. CT head/neck showed no acute abnormality, no abscess, no retorpharyngeal abscess, and no mastoiditis. Rocephin was started and given for 5 days and she is to complete 9 more days of amoxicillin for a total of 14 days of antibiotics. ID was consulted and recommended antibiotics management. They also recommended a HIV and multiple myeloma work-up by the PCP as an out-patient. Repeat blood culture on 01/21 and 01/22 have shown no growth. The source of her infection is unclear , possibly otitis media. The patient is clinically much improved and reports that she is back to her baseline. She is to follow-up with her PCP and complete her prescription of antibiotics. - Time Spent with Patient Total time spent providing and/or coordinating discharge services: Less than 30 minutes - Constitutional Vitals: Temp Pulse Resp BP Pulse Ox 98 F 84 18 166/76 100 01/25/17 07:40 01/25/17 07:40 01/25/17 07:40 01/25/17 07:40 01/25/17 07:40 General appearance: Present: A&O X 3, answers questions appropriately - Head Head exam: Present: atraumatic, normocephalic - Eye Eye exam: Present: conjuntiva pink, sclera anicteric - ENT ENT exam: Present: mucous membranes moist - Neck Neck exam general surgery: Present: supple, trachea midline. Absent: lymphadenopathy - Respiratory Respiratory exam: Present: CTAB. Absent: accessory muscle use, rales, rhonchi, wheezes - Cardiovascular Cardiovascular exam: Present: RRR, +S1, +S2. Absent: diastolic murmur, systolic murmur - GI/Abdominal GI/Abdominal exam: Present: normal bowel sounds, soft, no peritoneal signs. Absent: distended, tenderness - Extremities Exam Extremities exam: Present: warm, radial pulses palpable and symmetrical. Absent : calf tenderness, cyanotic, pedal edema - Neurological Exam Neurological exam: Present: CN II-XII intact, oriented X3, no focal deficits. Absent: facial droop, speech deficit - Skin Skin exam: Present: dry, intact <Ayesha,Elan P - Last Filed: 01/25/17 17:45> Date of Encounter: 01/25/17 - Discharge Diagnosis (1) Bacteremia due to Streptococcus pneumoniae Status: Acute (2) Leukocytosis Status: Acute Qualifiers: Leukocytosis type: unspecified Qualified Code(s): D72.829 - Elevated white blood cell count, unspecified (3) Diabetes mellitus Status: Chronic Qualifiers: Diabetes mellitus type: type 2 Diabetes mellitus complication status: with neurologic complications Diabetes mellitus complication detail: with unspecified neuropathy Diabetes mellitus exterminator helper insulin use: without fdc use Qualified Code(s): E11.40 - Type 2 diabetes mellitus with diabetic neuropathy, unspecified (4) HTN (hypertension) Status: Chronic Qualifiers: Hypertension type: essential hypertension Qualified Code(s): I10 - Essential (primary) hypertension (5) DVT prophylaxis Status: Acute Date of admission: 01/21/17 12:07 Primary care physician: Benson Herrera Consults: 01/25/17 10:05 Consult to Infectious Diseases [CONS] Routine Consulting Provider: Infectious Disease [place] Reason for Consult: antibiotic choice Time Notified: 10:05 Call Completed: Yes Hospital course: Ms. Saleh is a 66 year old female - Time Spent with Patient Total time spent providing and/or coordinating discharge services: - Constitutional Vitals: Temp Pulse Resp BP Pulse Ox 98.3 F 81 16 110/65 97 01/25/17 11:24 01/25/17 11:24 01/25/17 11:35 01/25/17 11:24 01/25/17 11:35 - Attending Attestation I examined this patient and my medical decision-making was reviewed with the Resident Physician. I agree with the documented findings, disposition and treatment plan as described except to the extent set forth below. 66-year-old female admitted with Streptococcus pneumonia bacteremia. Source of infection is unknown. Infectious disease team on the board. Patient received 4 days of intravenous antibiotics. Patient is afebrile/leukocytosis resolved/clinically feeling better. Patient needs inpatient hospitalization in view of bacteremia and intravenous antibiotics.
--- NOTE | 2017-01-25 13:17 | Infectious Disease Consult ---
Date of Encounter: 01/25/17 Time of Encounter: 13:13 Assessment and Plan (1) Fever Status: Acute Assessment and plan: Tmax 102.8 since admission. Resolved. Has been afebrile >48 hours. Qualifiers: Fever type: unspecified Qualified Code(s): R50.9 - Fever, unspecified (2) Leukocytosis Status: Acute Assessment and plan: Likely secondary to bacteremia and otitis media. Resolved. Qualifiers: Leukocytosis type: unspecified Qualified Code(s): D72.829 - Elevated white blood cell count, unspecified (3) Bacteremia due to Streptococcus pneumoniae Status: Acute Assessment and plan: Causative organism S. pneumoniae. Source likely right otitis media. Etiology unclear. The patient has no history of HIV/AIDS or multiple myeloma. Consider checking HIV status and screening for multiple myeloma. CXR and clinical picture not indicative of PNA. Blood cultures drawn 01/19/17 were positive 1/2 sets for S. pneumoniae. Repeat blood cultures drawn 01/21/17 x 2 sets and 01/22/17 x 2 sets are NGTD. The patient has been on Rocephin x 5 days. Continue Rocephin, but increase to 2 grams IV Q12H. Duration of treatment depends on the clinical picture, but likely a total of 14 days from the first set of negative blood cultures. Can switch to oral Amoxicillin 1000mg PO Q8H. Case discussed with Dr. Morales and Dr. Hodge of the primary team. Recommend the patient have PVC 13 and PPSV 23 if not already done so. The patient states she will check with her PCP. (4) Otitis media Status: Acute Assessment and plan: Location: Right ear. Causative organism likely S. pneumoniae based on blood culture results. Continue antibiotics as above. Qualifiers: Otitis media type: unspecified Chronicity: acute Qualified Code(s): H66.90 - Otitis media, unspecified, unspecified ear (5) Diabetes mellitus Status: Chronic Qualifiers: Diabetes mellitus type: type 2 Diabetes mellitus complication status: with neurologic complications Diabetes mellitus complication detail: with unspecified neuropathy Diabetes mellitus group home insulin use: without termite renewal inspector use Qualified Code(s): E11.40 - Type 2 diabetes mellitus with diabetic neuropathy, unspecified (6) HTN (hypertension) Status: Chronic Qualifiers: Hypertension type: essential hypertension Qualified Code(s): I10 - Essential (primary) hypertension Infectious Disease HPI - Data of Consult Patient: new to practice Consult date: 01/25/17 Requesting Physician: Elan Hodge MD Primary Care Provider: Benson Herrera - Consult Narrative Reason for consult: S. pneumoniae bacteremia History of present illness: Ms. Saleh is a 66 year old female past medical history of arthritis, diabetes, and hypertension. The patient was admitted to the hospital January 21 for positive blood cultures. We are consulted January 25 for antibiotic recommendations regarding bacteremia. Sleep, the patient is a 66-year-old female with past medical history as stated above. The patient presented to the emergency department on January 19 with complaints of a 1 day history of generalized weakness, right anterior neck, and right ear pain. She had a complete workup that revealed what appeared to be a viral syndrome and was discharged home. She did have blood cultures drawn that ended up coming back +1 out of 2 sets for strep pneumoniae. She was called to come back to the emergency department for admission. Upon arrival to the ER, the patient was afebrile and hemodynamically stable. She did have a leukocytosis. Her lactic acid and renal functions were normal. Chest x-ray was negative. CT of the head showed chronic left maxillary sinusitis. She does CT of the neck that was negative. Urinalysis was obtained and appears contaminated urine culture was negative. Repeat blood cultures drawn on admission were no growth to date 2 out of 2 sets. The patient was started on IV Rocephin and was admitted to the hospital for further evaluation. The day after admission, she did spike a fever 102.8. She had an additional set of blood cultures drawn that day that were also no growth to date. Her white blood cell count has normalized. She has been on Rocephin 2 g IV daily 5 days. We have been asked to evaluate and make further recommendations. My exam today, the patient states that overall she feels much improved. She reports fevers and chills and rigors prior to admission. She denies any headache or posterior neck pain or stiffness, but does report that she has sore throat that beta difficult to swallow and made out of her neck hurt. She also reported severe right ear pain and states that it feels clogged. She denies any nasal congestion or drainage. She denies any chest pain, shortness of breath, or cough. She denies any nausea, vomiting, diarrhea, or constipation. She reports chronically loose stools. She denies any abdominal pain and states her appetite is okay. She denies any pain in her back or extremities. She denies any oral thrush or new skin lesions. She tells me that overall she feels about 90% better than she did when she came in. The patient states she was at home by herself. Her recently . She does have family that checks in on her frequently. She does not work outside the home. She has 3 dogs that live in the house. She denies any recent travel. She does report that she smokes about a pack of cigarettes per day. She denies any alcohol or illicit drug use. She states she had a pneumonia vaccine at her doctor's office about 3 months ago, but she's not sure if it was the PPSV 23 or PCV 13. CC: Elan Hodge MD Past Med Surg Social Fam HX - Past Medical History Attestation: Yes The following information was validated with the patient. Source: patient, old records reviewed, nursing notes reviewed Medical history: arthritis, diabetes, hypertension Psychiatric history: no psych history - Past Surgical History Surgical History: orthopedic, other (left total hip replacement), other (tubal ligation, right arm surgery) - Social History Smoking Status: Current every day smoker Packs per day: 1 Smokeless Tobacco Status: No Alcohol use: none Drug use: none Occupational status: unemployed Current living situation: Home - Independent Activity Level: Independent ambulation Recent Out of Country Travel Within the Last 8 Weeks: No Exposure or Possible Exposure to Illness During Travel: No Infectious Disease-CN:Meds Atorvastatin Calcium [Lipitor] 80 mg PO HS 01/21/17 [History] Carvedilol 3.125 mg PO BID 01/21/17 [History] Cholecalciferol (D-3) [Vitamin D] 1,000 unit PO DAILY 01/21/17 [History] Gabapentin [Neurontin] 300 mg PO TID 01/21/17 [History] Isosorbide MONOnitrate (24 HR) [Imdur] 30 mg PO DAILY 01/21/17 [History] Levothyroxine [Synthroid] 88 mcg PO DAILY 01/21/17 [History] Losartan [Cozaar] 25 mg PO DAILY 01/21/17 [History] Ranitidine HCl [Acid Buffing And Polishing Wheel Repairer] 150 mg PO BID 01/21/17 [History] Sertraline [Zoloft] 100 mg PO BID 01/21/17 [History] metFORMIN [Glucophage] 500 mg PO BIDWM 01/21/17 [History] 3 Allergy/AdvReac Type Severity Reaction Status Date / Time No Known Allergies Allergy Verified 01/21/17 09:48 All systems: reviewed and no additional remarkable complaints except as stated Exam - Constitutional Vitals: Temp Pulse Resp BP Pulse Ox 98.3 F 81 16 110/65 97 01/25/17 11:24 01/25/17 11:24 01/25/17 11:35 01/25/17 11:24 01/25/17 11:35 General appearance: average body habitus, cooperative, no acute distress - Head Head exam: Present: atraumatic, normal inspection, normocephalic - Eye Eye exam: Present: EOMI, normal appearance, PERRL Pupils: Present: normal accommodation - ENT ENT exam: Present: mucous membranes moist - Neck Neck exam: Present: normal inspection. Absent: lymphadenopathy - Respiratory Respiratory exam: Present: CTAB. Absent: rales, respiratory distress, rhonchi, wheezes - Cardiovascular Cardiovascular exam: Present: RRR, +S1, +S2 - GI/Abdominal GI/Abdominal exam: Present: normal bowel sounds, soft. Absent: distended, tenderness - Extremities Exam Extremities exam: Present: normal inspection. Absent: joint swelling, pedal edema, tenderness - Back Exam Back exam: Present: normal inspection. Absent: paraspinal tenderness, vertebral tenderness - Neurological Exam Neurological exam: Present: alert, oriented X3 - Psychiatric Psychiatric exam: Present: normal affect, normal mood - Skin Skin exam: Present: dry, intact, normal color, warm Infectious Disease CN: Results - Labs CBC & Chem 7: 01/25/17 03:08 01/25/17 03:08 Cultures: Cultures 01/22/17 12:12 Blood Culture - Preliminary Peripheral Venipuncture No growth. 01/22/17 12:12 Blood Culture - Preliminary Peripheral Venipuncture No growth. 01/21/17 12:45 Urine Culture - Final Urine,Clean Catch No growth. Serology: Serology 01/21/17 Range/Units 12:45 Urine Color Dark Yellow (Yellow) Urine Clarity Cloudy A (Clear) Urine pH 5.5 (5.0-8.0) pH Units Ur Specific [place] 1.025 (1.010-1.025) Urine Protein 30 H (Neg-Trace) mg/dL Urine Glucose (UA) Normal (Normal) mg/dL Urine Ketones Negative (Negative) mg/dL Urine Blood Negative (Negative) Urine Nitrite Negative (Negative) Urine Bilirubin Negative (Negative) Urine Urobilinogen Normal (Normal) mg/dL Ur Leukocyte Esterase Small H (Negative) Urine Microscopic RBC 0-3 (0-3) per hpf Urine Microscopic WBC 15-30 H (0-3) per hpf Ur Squamous Epith Cells Many H (None-Few) per lpf Ur Transition Epith Cell Few (None-Few) per hpf Ur Renal Epithelial Cell Few (None-Few) per hpf Urine Bacteria Moderate H (None-Few) per hpf Hyaline Casts Few (None-Few) per lpf Granular Casts Few H (None Seen) per lpf Urine Mucus Few (Few) Ur Culture Indicated? YES A (NO) Consult Discharge Plan - Plan Additional Instructions: Take your medications as prescribed Follow-up with your PCP in 1 week Return to the hospital if your symptoms return or worsen Referrals: Benson Herrera, [Primary Care Provider] -
[2017-01-25] MEDS ORDERED: Famotidine 20 MG TABLET PO SCH (21:00)
== END 2017-01-25 14:49 | disposition home or self-care (01) | DRG 871 ==
LOC: 2NENU 09:46 → EMEROO 09:46 → OBSVTOIN 12:07 → 2NENU 15:05
PROVIDERS: ADMIT Internal Medicine; ATTEND Internal Medicine

== ENCOUNTER 2020-06-10 15:31 | Inpatient (IN) ==
[2020-06-10 15:55] LABS: VBG HCO3 27 mEq/L (21-27); VBG PCO2 45 mmHg (41-51); VBG PH 7.39 pH Units (7.32-7.42); VBG PO2 62 mmHg (25-50)
[2020-06-10 15:57] LABS: Basophils % 0.2 %; Eosinophils % 0.1 %; Hematocrit 41.1 % (35.3-44.9); Hemoglobin 13.7 g/dL (11.5-15.4); Immature Granulocytes % 0.4 % (0-4); Mean Corpuscular HGB Conc 33.3 g/dL (31.6-35.5); Mean Corpuscular Hemoglobin 32.2 pg (28.0-33.3); Mean Corpuscular Volume 96.5 fL (83.0-100.0); Mean Platelet Volume 11.2 fL (9.4-12.4); Monocytes # 0.4 K/mcL (0.0-1.3); Monocytes % 3.8 %; Neutrophils # 9.7 K/mcL (1.6-8.9); Platelet Count 157 K/mcL (140-400); Red Blood Count 4.26 M/mcL (3.82-4.97); Red Cell Distribution Width 12.8 % (11.5-14.5); Segmented Neutrophils % 86.5 %; White Blood Count 11.2 K/mcL (4.3-11.1)
[2020-06-10 16:25] LABS: Alanine Aminotransferase 12 Units/L (7-52); Albumin 4.4 g/dL (3.5-5.7); Albumin/Globulin Ratio 1.6 (1.1-2.2); Alkaline Phosphatase 109 Units/L (34-104); Aspartate Amino Transferase 24 Units/L (13-39); BUN/Creatinine Ratio 24 (6-26); Bilirubin,Direct 0.2 mg/dL (0.0-0.2); Bilirubin,Indirect 0.7 mg/dL (0.0-1.0); Bilirubin,Total 0.9 mg/dL (0.3-1.0); Blood Urea Nitrogen 19 mg/dL (8-23); Calcium 9.7 mg/dL (8.6-10.3); Carbon Dioxide 25 mEq/L (23-29); Chloride 102 mEq/L (98-107); Ethanol < 10 mg/dL (Less than 10); Globulin 2.8 g/dL (2.4-3.5); Glucose 123 mg/dL (70-105); Osmolality,Calculated 292 (280-300); Potassium 3.5 mEq/L (3.5-5.1); Sodium 139 mEq/L (136-145); Total Protein 7.2 g/dL (6.4-8.9); Troponin I 0.04 ng/mL (< 0.04); eGFR For African Americans > 60 (> 60); eGFR For Non-African Americans > 60 (> 60)
[2020-06-10 16:51] LABS: Bacteria,Urine Few per hpf (None-Few); Bilirubin,Urine Negative (Negative); Blood,Urine Negative (Negative); Clarity,Urine Clear (Clear); Color,Urine Yellow (Yellow); Glucose,Urine (UA) Normal (Normal); Ketones,Urine Trace mg/dL (Negative); Leukocyte Esterase,Urine Moderate (Negative); Mucus,Urine Few per lpf (None-Few); Nitrite,Urine Negative (Negative); Protein,Urine 30 mg/dL (Neg-Trace); Renal Epithelial Cells,Urine Few per hpf (None-Few); Specific Gravity,Urine 1.019 (1.010-1.025); Urobilinogen,Urine Normal (Normal); WBC,Urine 15-30 per hpf (0-3)
[2020-06-10 16:59] LABS: Amphetamine Screen,Urine Negative ng/mL (Cutoff=1000); Barbiturate Screen,Urine Negative ng/mL (Cutoff=200); Benzodiazepines Screen,Urine Negative ng/mL (Cutoff=200); Cannabinoid Screen,Urine Negative ng/mL (Cutoff = 50); Cocaine Screen,Urine Negative ng/mL (Cutoff= 300); Opiate Screen,Urine Negative ng/mL (Cutoff=300); Phencyclidine Screen,Urine Negative ng/mL (Cutoff=25)
[2020-06-10] MEDS ORDERED: Aspirin 325 MG TABLET PO ONE (17:53)
[2020-06-10] MEDS ORDERED: Acetaminophen 325 MG TABLET PO PRN (17:59)
[2020-06-10] MEDS ORDERED: Naloxone 0.4 MG/ML INJ IVP PRN (17:59)
[2020-06-10] MEDS ORDERED: Isovue-370 500 ML BOTTLE IVP ONE (17:59)
[2020-06-10] MEDS ORDERED: Perflutren Lipid Microsphere 1.3 ML in 0.9 % Sodium Chloride 8.7 ML IVP PRN (18:16)
[2020-06-10] MEDS ORDERED: D5% in Water 1,000 ML IVC PRN (18:22)
[2020-06-10] MEDS ORDERED: Dextrose Gel 15 GM/37.5 ML TUBE PO PRN ×2 (18:22)
[2020-06-10] MEDS ORDERED: *HR* Dextrose 50 % in Water (Vial) 50 ML VIAL IVP PRN (18:22)
[2020-06-10] MEDS: Ondansetron 4 MG/2 ML VIAL IVP PRN (21:15)
[2020-06-10] MEDS: Insulin LISPRO 300 UNITS/3 ML VIAL SUBQ SCH (21:15)
[2020-06-11] MEDS ORDERED: Prochlorperazine 10 MG/2 ML VIAL IVP STA (00:46)
[2020-06-11] MEDS: *HR* Labetalol 20 MG/4 ML SYRINGE IVP PRN ×2 (00:55→05:44)
[2020-06-11 01:56] LABS: Basophils % 0.3 %; Eosinophils % 0.1 %; Hemoglobin 13.2 g/dL (11.5-15.4); Immature Granulocytes % 0.5 % (0-4); Lymphocytes # 0.9 K/mcL (0.6-4.6); Lymphocytes % 8.7 %; Mean Corpuscular Volume 96.9 fL (83.0-100.0); Mean Platelet Volume 11.2 fL (9.4-12.4); Monocytes # 0.5 K/mcL (0.0-1.3); Monocytes % 4.4 %; Neutrophils # 8.8 K/mcL (1.6-8.9); Platelet Count 159 K/mcL (140-400); Red Blood Count 4.13 M/mcL (3.82-4.97); Red Cell Distribution Width 12.9 % (11.5-14.5); White Blood Count 10.3 K/mcL (4.3-11.1)
[2020-06-11 02:04] LABS: INR 1.1; Prothrombin Time 12.6 Seconds (9.4-12.1)
[2020-06-11 02:21] LABS: Alanine Aminotransferase 11 Units/L (7-52); Albumin 4.3 g/dL (3.5-5.7); Albumin/Globulin Ratio 1.7 (1.1-2.2); Alkaline Phosphatase 102 Units/L (34-104); Aspartate Amino Transferase 22 Units/L (13-39); BUN/Creatinine Ratio 27 (6-26); Bilirubin,Direct 0.1 mg/dL (0.0-0.2); Bilirubin,Indirect 0.7 mg/dL (0.0-1.0); Bilirubin,Total 0.8 mg/dL (0.3-1.0); Blood Urea Nitrogen 21 mg/dL (8-23); Calcium 9.5 mg/dL (8.6-10.3); Carbon Dioxide 26 mEq/L (23-29); Chloride 105 mEq/L (98-107); Chol/HDL Ratio 2.8 (0-4.9); Cholesterol 214 mg/dL (< 200); Globulin 2.5 g/dL (2.4-3.5); Glucose 131 mg/dL (70-105); HDL Cholesterol 76 mg/dL (40-59); LDL Cholesterol,Calculated 122 mg/dL (< 100); Magnesium 2.1 mg/dL (1.6-2.6); Osmolality,Calculated 295 (280-300); Potassium 3.4 mEq/L (3.5-5.1); Sodium 140 mEq/L (136-145); Total Protein 6.8 g/dL (6.4-8.9); Triglycerides 79 mg/dL (< 150); Troponin I 0.04 ng/mL (< 0.04); eGFR For African Americans > 60 (> 60); eGFR For Non-African Americans > 60 (> 60)
[2020-06-11 02:34] LABS: Estimated Average Glucose 103 mg/dl; Hemoglobin A1C 5.2 %
[2020-06-11 02:38] LABS: Thyroid Stimulating Hormone 1.762 mcIU/mL (0.340-5.600)
[2020-06-11] MEDS: Ondansetron 4 MG/2 ML VIAL IVP PRN (05:42)
[2020-06-11] MEDS: Insulin LISPRO 300 UNITS/3 ML VIAL SUBQ SCH ×4 (07:30→19:50)
[2020-06-11] MEDS ORDERED: *HR* OxyCODONE/APAP 10/325 TABLET PO PRN (12:05)
[2020-06-11] MEDS: Gabapentin 400 MG CAPSULE PO SCH ×2 (16:28→19:59)
[2020-06-12 06:40] LABS: BUN/Creatinine Ratio 30 (6-26); Blood Urea Nitrogen 27 mg/dL (8-23); Calcium 9.1 mg/dL (8.6-10.3); Carbon Dioxide 28 mEq/L (23-29); Chloride 107 mEq/L (98-107); Glucose 107 mg/dL (70-105); Osmolality,Calculated 298 (280-300); Potassium 3.9 mEq/L (3.5-5.1); Sodium 141 mEq/L (136-145); eGFR For African Americans > 60 (> 60); eGFR For Non-African Americans > 60 (> 60)
[2020-06-12 06:43] LABS: Basophils % 0.4 %; Eosinophils # 0.1 K/mcL (0.0-0.6); Eosinophils % 1.2 %; Hematocrit 40.1 % (35.3-44.9); Hemoglobin 12.8 g/dL (11.5-15.4); Immature Granulocytes % 0.2 % (0-4); Lymphocytes # 1.6 K/mcL (0.6-4.6); Lymphocytes % 18.6 %; Mean Corpuscular HGB Conc 31.9 g/dL (31.6-35.5); Mean Corpuscular Hemoglobin 32.4 pg (28.0-33.3); Mean Corpuscular Volume 101.5 fL (83.0-100.0); Mean Platelet Volume 11.3 fL (9.4-12.4); Monocytes # 0.6 K/mcL (0.0-1.3); Monocytes % 7.3 %; Neutrophils # 6.2 K/mcL (1.6-8.9); Platelet Count 137 K/mcL (140-400); Red Blood Count 3.95 M/mcL (3.82-4.97); Red Cell Distribution Width 13.1 % (11.5-14.5); Segmented Neutrophils % 72.3 %; White Blood Count 8.6 K/mcL (4.3-11.1)
[2020-06-12] MEDS: Insulin LISPRO 300 UNITS/3 ML VIAL SUBQ SCH ×4 (07:30→20:46)
[2020-06-12] MEDS: Aspirin 81 MG TAB.CHEW PO SCH (10:11)
[2020-06-12] MEDS: Gabapentin 400 MG CAPSULE PO SCH ×3 (10:11→20:52)
[2020-06-12] MEDS: cefTRIAXone 1,000 MG in Water for inj. (sterile) 10 ML IVP SCH (14:20)
[2020-06-13] MEDS: Insulin LISPRO 300 UNITS/3 ML VIAL SUBQ SCH ×3 (10:08→18:31)
[2020-06-13] MEDS: Aspirin 81 MG TAB.CHEW PO SCH (10:23)
[2020-06-13] MEDS: cefTRIAXone 1,000 MG in Water for inj. (sterile) 10 ML IVP SCH (10:23)
[2020-06-13] MEDS: Gabapentin 400 MG CAPSULE PO SCH ×2 (10:23→15:23)
[2020-06-13 15:43] VITALS: BP 143/74
[2020-06-13 17:57] LABS: Adenovirus Not Detected (Not Detect); Coronavirus 229E Not Detected (Not Detect); Coronavirus HKU1 Not Detected (Not Detect); Coronavirus NL63 Not Detected (Not Detect); Coronavirus OC43 Not Detected (Not Detect); Human Metapneumovirus Not Detected (Not Detect); Human Rhinovirus/Enterovirus Not Detected (Not Detect); Influenza A Subtype 2009 H1 Not Detected (Not Detect); SARS-CoV-2 Not Detected (Not Detect)
[2020-06-13 17:58] LABS: Bordetella Pertussis Not Detected (Not Detect); Chlamydophila pneumoniae Not Detected (Not Detect); Influenza B Not Detected (Not Detect); Mycoplasma pneumoniae Not Detected (Not Detect); Parainfluenza Virus 1 Not Detected (Not Detect); Parainfluenza Virus 2 Not Detected (Not Detect); Parainfluenza Virus 3 Not Detected (Not Detect); Parainfluenza Virus 4 Not Detected (Not Detect); Respiratory Syncytial Virus Not Detected (Not Detect)
== END 2020-06-13 19:10 | DRG 64 ==
LOC: EMEROOARM 15:31 → 3BNU 15:31 → SUATTDRO 17:32 → 3BNU 18:25
PROVIDERS: ADMIT Pharmacist; ATTEND Registered Nurse